=== PATIENT | male | born 1965 | race Caucasian/White ===

== ENCOUNTER 2017-11-10 16:03 | Emergency (ER) | payer BC, OTHER ==
[~2017-11-10] VITALS: Ht 175.3 cm; Wt 70.8 kg
[2017-11-10 16:10] VITALS: BP 129/92
[2017-11-10] MEDS ORDERED: KEFLEX500 M1 PO (17:14)
== END 2017-11-10 17:45 | disposition home or self-care (01) ==
LOC: ER 16:03
DX: S61.211A Laceration without foreign body of left index finger without damage to nail, initial encounter (principal); W26.8XXA Contact with other sharp object(s), not elsewhere classified, initial encounter; Y93.89 Activity, other specified; Y92.89 Other specified places as the place of occurrence of the external cause; Y99.8 Other external cause status

== ENCOUNTER → 2021-08-07 | Outpatient (CLI) | payer OTHER ==
[~2021-08-07] MED LIST: KEFLEX500 M1 PO
== END ==
LOC: CAT 10:21
PROVIDERS: ATTEND Nurse Practitioner
DX: Z13.6 Encounter for screening for cardiovascular disorders (principal); I25.10 Atherosclerotic heart disease of native coronary artery without angina pectoris; E78.00 Pure hypercholesterolemia, unspecified